=== PATIENT | male | born 1960 | race Caucasian/White ===

== ENCOUNTER → 2019-09-02 | Outpatient (CLI) | payer MEDICAID, SELFPAY ==
[2019-03-04 14:06] VITALS: BMI 36.1
--- NOTE | 2019-09-03 13:17 | PFT ---
INTRODUCTION: The patient is a 59-year-old male who presents for pulmonary function studies secondary to a diagnosis of COPD. Respiratory therapy reports good patient effort. Bronchodilators were used during testing. INTERPRETATION: Forced expiration spirometry demonstrates the presence of a severe large airways obstructive ventilatory defect. There was a significant response to aerosolized bronchodilators noted. Spirograms are of fair quality and do not plateau indicating slow emptying of the lungs. Body plethysmography was performed and reveals an elevated RV to 139% of predicted, indicative of underlying air trapping. Diffusing capacity by single breath CO is reduced to 65% of predicted. IMPRESSION: Partially reversible severe large airways obstructive ventilatory defect with associated air trapping and reduction in diffusing capacity.
== END | disposition home or self-care (01) ==
LOC: PSN 13:00
PROVIDERS: Family Provider Family Medicine; PCP Family Medicine; Referring Provider Internal Medicine Critical Care Medicine; Visit Provider Internal Medicine Critical Care Medicine
DX: J44.9 Chronic obstructive pulmonary disease, unspecified (principal)
CPT/HCPCS: 94060; 94726; 94729

== ENCOUNTER → 2019-09-04 | Outpatient (CLI) | payer MEDICAID, SELFPAY ==
[2019-03-04 14:06] VITALS: BMI 36.1
[2019-09-04 12:30] VITALS: PULSE 66; PULSE 72; PULSE 75; PULSE 84; PULSE 87; PULSE 92; RESP 20; O2SAT 88; O2SAT 89; O2SAT 92; O2SAT 94; O2SAT 97
--- NOTE | 2019-09-04 13:01 | CPS ---
pt wears 2L @home pulse dose, 6 min walk done on pt's pulse dose oxygen tank. He required 2L pulse dose oxygen within the 4th minute. Pt requested a breathing tx post walk, he stated he was told he couldn't do any breathing tx's before his 6 min walk. I informed the pt that is only for pft's. Dr Esquivel gave verbal order for albuterol tx.
--- NOTE | 2019-09-05 07:11 | PCM.PSN.6M ---
PSN 6 Minute Walk Test - 6 Minute Walk Test 6 Minute Walk Test: 6 Minute Walk Test PSN:6-Minute Walk Test Start: 09/04/19 12:56 Freq: Status: Active Protocol: [id number].[id number] Document 09/04/19 12:30 HG (Rec: 09/04/19 13:01 HG [id number]) 6 Minute Walk Test Date Performed 09/04/19 Time Performed 12:30 Height 6 ft Weight: 240 lb Weight in Pounds 240.[address]: Navneet Carranza Assistive device used: None Pre-test Oxygen Delivery Method Room Air Pulse Ox (%) 92 Pulse Rate (60-100 beats/min) 66 Dyspnea Krystle Scale (0-10) 3 Exertion Krystle Scale (6-20) 13 1st minute Oxygen Delivery Method Room Air Pulse Ox (%) 92 Pulse Rate (60-100 beats/min) 84 2nd minute Oxygen Delivery Method Room Air Pulse Ox (%) 89 Pulse Rate (60-100 beats/min) 92 3rd minute Oxygen Delivery Method Room Air Pulse Ox (%) 89 Pulse Rate (60-100 beats/min) 92 4th minute Oxygen Delivery Method Room Air Pulse Ox (%) 88 Pulse Rate (60-100 beats/min) 92 5th minute Oxygen Flow Rate (L/min) (L/min) 2 Oxygen Delivery Method Nasal Cannula Pulse Ox (%) 92 Pulse Rate (60-100 beats/min) 84 6th minute Oxygen Flow Rate (L/min) (L/min) 2 Oxygen Delivery Method Nasal Cannula Pulse Ox (%) 94 Pulse Rate (60-100 beats/min) 87 Post-test Oxygen Flow Rate (L/min) (L/min) 2 Oxygen Delivery Method Nasal Cannula Pulse Ox (%) 97 Pulse Rate (60-100 beats/min) 72 Dyspnea Krystle Scale (0-10) 3 Exertion Krystle Scale (6-20) 14 Full Laps Walked 12 Partial Lap, Number of Tiles Walked 0 Total Distance Walked (ft) 708 - Interpretation Interpretation: The patient ambulated 708 feet over the course of 6 minutes beginning on room air without assistive devices or breaks. Pretesting oxygen saturation was noted to be 92% on room air. With ambulation, the daylin oxygen saturation was 88%. 2 L/min of supplemental oxygen was applied and the patient was able to complete the remainder of the test while maintaining appropriate oxygen saturations. - Recommendations Recommendations: 2 L/min of supplemental oxygen should be utilized with exertion.
== END | disposition home or self-care (01) ==
LOC: PSN 12:22
PROVIDERS: Family Provider Family Medicine; PCP Family Medicine; Referring Provider Internal Medicine Critical Care Medicine; Visit Provider Internal Medicine Critical Care Medicine
DX: J44.9 Chronic obstructive pulmonary disease, unspecified (principal)
CPT/HCPCS: 94618; 94640